=== PATIENT | female | born 1960 | race Caucasian/White ===

== ENCOUNTER → 2018-09-18 | Outpatient (CLI) | payer MEDICARE ==
[~2018-09-18] MED LIST: ASPIRIN 81M81 MG/TA2 PO; CIPRO 500MG TA500 MG PO; COZAAR100 MG PO; DITROPAN 5MG TAB5 MG PO; GLUCOTROL10 MG PO; NORCO 325 MG-51 TAB PO; NORVASC 5MG5 MG/TAB PO; PERCOCET 325 MG1 TA2 PO; TOPROL XL 50MG50 MG PO; ZANTAC 150MG T150 MG PO; ZOFRAN ODT4 MG PO
== END ==
LOC: MHCPAIN 12:44
DX: G89.29 Other chronic pain (principal); M54.12 Radiculopathy, cervical region; M47.812 Spondylosis without myelopathy or radiculopathy, cervical region; M48.02 Spinal stenosis, cervical region
CPT/HCPCS: G0463

== ENCOUNTER → 2018-09-26 | Outpatient (CLI) | payer MEDICARE | LOC: MHCPAIN 09:51 | DX: M47.812 Spondylosis without myelopathy or radiculopathy, cervical region (principal); M54.12 Radiculopathy, cervical region; M50.90 Cervical disc disorder, unspecified, unspecified cervical region | CPT/HCPCS: J1100; Q9967 ==

== ENCOUNTER → 2018-10-09 | Outpatient (CLI) | payer MEDICARE | LOC: MHCPAIN 09:40 | DX: G89.29 Other chronic pain (principal); M54.12 Radiculopathy, cervical region; M54.81 Occipital neuralgia; R51 Headache; M47.812 Spondylosis without myelopathy or radiculopathy, cervical region | CPT/HCPCS: G0463 ==

== ENCOUNTER → 2019-01-28 | Outpatient (CLI) | payer MEDICARE | LOC: COL.RAD 11:00 | DX: R10.31 Right lower quadrant pain (principal); Z90.710 Acquired absence of both cervix and uterus ==

== ENCOUNTER → 2021-06-28 | Outpatient (CLI) | payer MEDICARE | LOC: COL.RAD 10:10 | DX: G44.311 Acute post-traumatic headache, intractable (principal) ==

== ENCOUNTER 2022-01-20 06:27 | Day surgery (SDC) | payer MEDICARE ==
[~2022-01-20] VITALS: Ht 149.9 cm; Wt 61.8 kg
[~2022-01-20 06:27] MED LIST changes: +BENTYL 20MG20 MG/TAB PO; +REGLAN 10MG10 MG/TAB PO
[2022-01-20] MEDS ORDERED: PRAVACHOL 40MG40 MG PO (06:49)
[2022-01-20] MEDS ORDERED: PROTONIX 40MG T40 MG PO (06:49)
[2022-01-20] MEDS ORDERED: ACTOS 15MG TAB15 MG PO (06:49)
[2022-01-20] MEDS ORDERED: VTAMINC250TA PO (06:50)
[2022-01-20] MEDS ORDERED: VITAMIN B COMPL1 SGL PO (06:50)
[2022-01-20] MEDS ORDERED: COLESTID 1GM1 G PO (06:51)
[2022-01-20] MEDS ORDERED: VITAMIND3 5000 PO (06:51)
[2022-01-20] MEDS ORDERED: TRULICITY0.75 MG/0. SQ (06:52)
[2022-01-20] MEDS ORDERED: BENTYL 20MG20 MG/TAB PO (06:52)
[2022-01-20] MEDS ORDERED: IMODIUM 2MG CAPS2 MG PO (06:53)
[2022-01-20] MEDS ORDERED: NATURAL MAGNES200 MG PO (06:53)
[2022-01-20] MEDS ORDERED: ZOFRAN 4MG T4 MG/TAB PO (06:53)
[2022-01-20 07:17] VITALS: BP 138/82; PULSE 71; TEMP 96.9
[2022-01-20 08:15] VITALS: BP 109/71; PULSE 70; TEMP 97.8
[2022-01-20 08:30] VITALS: BP 132/71; PULSE 60
[2022-01-20 08:45] VITALS: BP 136/73; PULSE 61
--- NOTE | 2022-01-20 09:05 | NUR ---
0815 PT RETURNED TO BAY 2 VIA CART. TRANSFERRED TO CHAIR WITH RN ASSIST. ALERT AND ORIENTED. MONITORS ATTACHED, INTERVALS AND ALARMS SET. VSS. PT DENIES PAIN OR NAUSEA. FOOD AND DRINK PROVIDED. CALL LIGHT IN REACH. 0830 VSS. PT DENIES DISCOMFORT. TOLERATING FOOD AND DRINK WELL. DR IN TO SPEAK WITH PT. PT AND FAMILY DENIE QUESTIONS. 0845 VSS. PT DENIES DISCOMFORT. REVIEWED DISCHARGE INSTRUCTIONS AND EDUCATION MATERIAL, ANSWERED ALL QUESTIONS. IV REMOVED WITHOUT COMPLICATIONS. PT ALLOWED TO DRESS. 0905 TRANSFERRED PT VIA WHEELCHAIR TO PERSONAL VEHICLE TO BE DRIVEN HOME BY DAUGHTER.
== END 2022-01-20 09:05 | disposition home or self-care (01) ==
LOC: SDCO 06:27
DX: K64.1 Second degree hemorrhoids (principal); R19.7 Diarrhea, unspecified; K21.9 Gastro-esophageal reflux disease without esophagitis
CPT/HCPCS: J2405; J2704; J7120

== ENCOUNTER → 2022-03-01 | Outpatient (CLI) | payer MEDICARE ==
[~2022-03-01] MED LIST changes: +ACTOS 15MG TAB15 MG PO; +COLESTID 1GM1 G PO; +IMODIUM 2MG CAPS2 MG PO; +NATURAL MAGNES200 MG PO; +PRAVACHOL 40MG40 MG PO; +PROTONIX 40MG T40 MG PO; +TRULICITY0.75 MG/0. SQ; +VITAMIN B COMPL1 SGL PO; +VITAMIND3 5000 PO; +VTAMINC250TA PO; +ZOFRAN 4MG T4 MG/TAB PO
== END ==
LOC: COL.RAD 15:56
DX: R19.7 Diarrhea, unspecified (principal); K21.9 Gastro-esophageal reflux disease without esophagitis; K31.84 Gastroparesis; K86.89 Other specified diseases of pancreas

== ENCOUNTER 2023-10-11 11:01 | Day surgery (SDC) | payer MEDICARE ==
[~2023-10-11] VITALS: Ht 147.3 cm; Wt 73.1 kg
[~2023-10-11 11:01] MED LIST changes: +HYDROmorphone 1 MG/1 ML SYRINGE [PACU/SDC ONLY] IV PRN; +LR 1,000 ML IV SCH; +Ondansetron 4 MG/2 ML VIAL IV PRN; +PEPCID40 MG PO; +PRILOTC; +VITAMIN C500 MG PO; +droPERidol 2.5 MG/ML 2 ML VIAL IV PRN; +fentaNYL 50 MCG/ML 1 ML SYRINGE/VIAL [PACU/SDC ONLY] IV PRN; +hydrALAZINE 20 MG/ML 1 ML VIAL IV PRN
[2023-10-11] MEDS ORDERED: fentaNYL 50 MCG/ML 2 ML VIAL ONE (11:54)
[2023-10-11] MEDS ORDERED: Glycopyrrolate 0.2 MG/ML 1 ML VIAL ONE (11:56)
[2023-10-11] MEDS ORDERED: Lidocaine PF 2% (20 MG/ML) 5 ML VIAL ONE (11:56)
[2023-10-11] MEDS ORDERED: NS 10 ML IV ONE (11:56)
[2023-10-11] MEDS ORDERED: BENTYL 20MG20 MG/TAB PO (11:58)
[2023-10-11] MEDS ORDERED: NS IV SCH (12:00)
[2023-10-11] MEDS ORDERED: GENTAMICIN IV SCH (12:00)
[2023-10-11] MEDS ORDERED: VESICARE10 MG PO (12:17)
[2023-10-11 12:22] VITALS: BP 153/86; PULSE 64; TEMP 98.9
--- NOTE | 2023-10-11 13:05 | NUR ---
GENTAMICIN 160MG IV SENT WITH PATIENT TO OR TO BE ADMINISTERED BY THE CUSTOMER DEVELOPMENT MANAGER.
[2023-10-11] MEDS ORDERED: oxyCODONE 5 MG TAB PO PRN (13:15)
--- NOTE | 2023-10-11 13:42 | NUR ---
PATIENT WAS ADMITTED TO ROOM 5 AMBULATORY AND IS ALERT AND ORIENTED X3. VOICED UNDERSTANDING OF SURGERY AND CONSENT SIGNED. STATES IS DIFFICULT IV START. BILATERAL ARMS WRAPPED WITH WARM BLANKETS. ATTEMPTED X1 TO START IV WITHOUT SUCCESS. ROMAN RN BROUGHT ULTRASOUND TO ROOM AND #20G STARTED LF. PATIENT STATED ON ADMIT THAT SHE HAD DRANK 8 OUNCES OF WATER PRIOR TO COMING INTO HOSPITAL AT 1100. ATIYA VELEZ C PROGRAMMER NOTIFIED AND SURGERY CANNOT START UNTIL SCHEDULED TIME AT 1300. DR. AZUL WAS HERE AT 1220 WANTING TO GO EARLY AND INFORMED MUST WAIT UNTIL 1300. RESTING ON CART AND SIDERAILS UP X2 WITH CALL LIGHT IN REACH.
[2023-10-11] MEDS ORDERED: Topical Skin Adhesive 1 EACH (1 ML) TOP ONE (13:50)
[2023-10-11 13:55] VITALS: BP 96/43; PULSE 71; TEMP 97.4
[2023-10-11] MEDS ORDERED: ROXICODONE 55 MG/TAB PO (13:56)
[2023-10-11] MEDS ORDERED: Ketorolac 15 MG/ML VIAL IV PRN (14:00)
[2023-10-11 14:10] VITALS: BP 96/44; PULSE 66
[2023-10-11 14:25] VITALS: BP 110/53; PULSE 64
[2023-10-11 14:40] VITALS: BP 115/54; PULSE 64
--- NOTE | 2023-10-11 14:55 | NUR ---
1355 RETURNS TO ROOM 5 FROM OR PER CART. DROWSY, AROUSES SPONTANEOUSLY. RESP UNLABORED FAMILIARIZED WITH SURROUNDINGS. PATIENT LYING IN SUPINE POSITION WITH HOB ELEVATED 30 DEGREES. TURNS SLIGHTLY LEFT LATERAL. STERI STRIPS INTACT RIGHT LOWER BACK INCISION WITH SCANT LIGHT PINK DISCHARGE OBSERVED. BANDAID MID LOWER BACK CLEAN DRY AND INTACT. REPORTS COMFORT. CALL LIGHT AT SIDE 1410 INTERSTIM REP HERE TO VISIT WITH PATIENT 1425 MORE AWAKE, ALERT, CONVERSES APPROPRIATELY. TOLERATES PO JUICE WITHOUT NAUSEA 1430 DISCHARGE INSTRUCTIONS REVIEWED. PATIENT VERBALIZES UNDERSTANDING. COPY PROVIDED IN DISCHARGE FOLDER 1440 SITS ON EDGE OF BED THEN AMBULATES TO BATHROOM WITH STANDBY ASSIST 1445 SITS IN CHAIR IN ROOM. DRESSES SELF. NO CHANGE IN AMOUNT OR APPEARANCE OF DRAINAGE RIGHT LOWER BACK INCISION
== END 2023-10-11 14:55 | disposition home or self-care (01) ==
LOC: SDCO 11:01
DX: N39.46 Mixed incontinence (principal); E66.9 Obesity, unspecified; K21.9 Gastro-esophageal reflux disease without esophagitis
CPT/HCPCS: C1787; J0690; J2704; J3010; J3370; J7050; J7120; L8679